=== PATIENT | female | born 1965 ===

== ENCOUNTER 2021-03-08 10:26 | Inpatient (IN) ==
[~2021-03-08 10:26] MED LIST: Buffered Lidocaine 1% SYRIN 1 ml INTRADERM ONE; Lactated Ringers 1000 ml BAG 1,000 ML IV SCH
[2021-03-08] MEDS ORDERED: Clindamycin 900 MG/D5W BAG 900 MG/50 ML BAG IVPB ONE (10:48)
[2021-03-08] MEDS ORDERED: ROPIVACAINE 5 MG/ML 30 ML BTL (0.5%) ONE (12:16)
[2021-03-08] MEDS ORDERED: Rocuronium 50 mg VIAL 10 mg/ml 5 ml VIAL (50 mg) ONE (12:35)
[2021-03-08] MEDS ORDERED: Ondansetron 4 mg VIAL 2 MG/ML 2 ml VIAL ONE (12:35)
[2021-03-08] MEDS ORDERED: Ketamine HCL 50 mg/ml 10 ml VIAL (500 MG) ONE (12:35)
[2021-03-08] MEDS ORDERED: Midazolam 2 mg/2 ml VIAL 1 mg/ml 2 ml VIAL (2 mg) ONE (12:35)
[2021-03-08] MEDS ORDERED: Dexamethasone IV 4 MG/ML VIAL 1 ml VIAL ONE (12:35)
[2021-03-08] MEDS ORDERED: Propofol 10 MG/ML 20 ML BTL ONE (12:35)
[2021-03-08] MEDS ORDERED: fentaNYL 250 mcg/5 ml 50 MCG/ML 5 ml VIAL (250 MCG) ONE (12:35)
[2021-03-08] MEDS ORDERED: Lidocaine 2% PF 5 ML VIAL ONE (12:35)
[2021-03-08] MEDS ORDERED: Magnesium Hydroxide LIQ 30 ML UDC PO PRN (13:34)
[2021-03-08] MEDS ORDERED: Morphine 2 MG/ML SYRINGE IV PRN (13:34)
[2021-03-08] MEDS ORDERED: Ondansetron ODT 4 mg TAB 4 MG TAB PO PRN (13:34)
[2021-03-08] MEDS ORDERED: Lactulose 30 ml UDC PO PRN (13:34)
[2021-03-08] MEDS ORDERED: diPHENhydraMINE 25 mg TAB PO PRN (13:34)
[2021-03-08] MEDS ORDERED: diPHENhydraMINE IV 50 MG/ML 1 ml VIAL (BENADRYL) IV PRN ×2 (13:34→15:42)
[2021-03-08] MEDS ORDERED: Ondansetron 4 mg VIAL 2 MG/ML 2 ml VIAL IV PRN (13:34)
[2021-03-08] MEDS ORDERED: HYDROmorphone 0.5 MG/0.5 ML SYRINGE ONE ×2 (14:20→15:18)
[2021-03-08] MEDS ORDERED: Naloxone 0.4 mg VIAL 0.4 mg/ml 1 ml VIAL IV PRN (15:42)
[2021-03-08] MEDS ORDERED: Prochlorperazine 5 mg/ml 2 ml VIAL (10 mg) IV PRN (15:42)
[2021-03-08] MEDS ORDERED: HYDROmorphone 1 MG/1 ML SYRINGE ONE (15:46)
[2021-03-08] MEDS: HYDROmorphone 1 MG/1 ML SYRINGE IV PRN ×5 (15:50→16:15)
[2021-03-08] MEDS ORDERED: diPHENhydraMINE IV 50 MG/ML 1 ml VIAL (BENADRYL) ONE (16:13)
[2021-03-08] MEDS: Lactated Ringers 1000 ml BAG 1,000 ML IV SCH (17:15)
[2021-03-08] MEDS: Clindamycin 600 MG/D5W BAG 600 MG/50 ML BAG IV SCH (21:30)
[2021-03-08] MEDS: Magnesium Hydroxide LIQ 30 ML UDC PO SCH (21:30)
[2021-03-09] MEDS: Clindamycin 600 MG/D5W BAG 600 MG/50 ML BAG IV SCH (05:36)
[2021-03-09] MEDS: Lactated Ringers 1000 ml BAG 1,000 ML IV SCH (05:54)
[2021-03-09 06:55] LABS: Hematocrit 29 % (35-47); Hemoglobin 9.7 g/dL (12.0-16.0); Mean Platelet Volume 9.3 fL (7.4-10.4); Platelet Count 157 10^3/uL (150-450)
[2021-03-09 07:11] LABS: Calcium 8.4 mg/dL (8.6-10.3); eGFR CKD-EPI 98.7 (>60)
[2021-03-09] MEDS: Magnesium Hydroxide LIQ 30 ML UDC PO SCH (07:17)
[2021-03-09 07:39] VITALS: BP 100/61
[2021-03-09] MEDS ORDERED: Vitamin THERAPEUTIC TAB PO SCH (09:00)
== END 2021-03-09 11:40 | disposition home or self-care (01) | DRG 301 ==
LOC: AA 10:26 → SSU 17:21
PROVIDERS: ADMIT Orthopaedic Surgery Adult Reconstructive Orthopaedic Surgery; ATTEND Orthopaedic Surgery Adult Reconstructive Orthopaedic Surgery